=== PATIENT | male | born 2005 | race Caucasian/White ===

== ENCOUNTER 2024-06-03 08:18 | Emergency (ER) | payer BC, SELFPAY ==
[2024-06-03 08:31] VITALS: BP 136/101
[2024-06-03 08:49] LABS: % Basophils 0.7 % (0-2); % Eosinophils 1.7 % (0-6); % Immature Granulocytes 0.2 % (0-0.5); % Lymphocytes 33.2 % (20.5-51.1); % Monocytes 9.6 % (1.7-9.3); % Neutrophils 54.6 % (42.2-75.2); Absolute Eosinophils 0.1 10^3/uL (0-0.7); Absolute Monocytes 0.6 10^3/uL (0.1-0.6); Absolute Neutrophils 3.2 10^3/uL (1.4-6.5); Hematocrit 39.5 % (39.0-52.0); Hemoglobin 14.1 g/dL (13.0-18.0); Mean Corp Hgb Conc. 35.7 g/dL (33.0-37.0); Mean Corpuscular Hgb 31.7 pg (27.0-31.0); Mean Corpuscular Volume 88.8 fL (80.0-94.0); Mean Platelet Volume 9.9 fL (7.4-10.4); Nucleated Red Blood Cells % 0 % (-); Platelet Count 203 10^3/uL (130-400); Red Blood Cell Count 4.45 10^6/uL (4.70-6.10); Red Cell Dist. Width 12.1 % (11.5-14.5); White Blood Cell Count 5.9 10^3/uL (4.8-10.8)
[2024-06-03 09:00] LABS: ALT (SGPT) 16 U/L (0-50); AST (SGOT) 20 U/L (17-59); Albumin 4.7 g/dl (3.5-5.0); Alkaline Phosphatase 67 U/L (38-126); Blood Urea Nitrogen 12 mg/dl (9-20); Calcium 9.7 mg/dl (8.4-10.2); Carbon Dioxide 26 mmol/L (22-30); Chloride 104 mmol/L (98-107); Glucose 93 mg/dl (70-99); Sodium 140 mmol/L (135-145); Total Bilirubin 0.7 mg/dl (0.2-1.3); Total Protein 6.6 g/dl (6.3-8.2); eGFR > 60.00
[2024-06-03 09:15] LABS: Troponin I < 0.012 ng/ml
[2024-06-03 10:15] VITALS: BP 114/60; BMI 27.4
[2024-06-03 11:00] VITALS: BP 125/77
--- NOTE | 2024-06-03 11:10 | ED.GENMED ---
History of Present Illness
<Wendy Kolb PA-C - Last Filed: 06/04/24 08:11>
General
Chief Complaint: Chest Problem
Source: patient
Exam Limitations: none
Time Seen by Provider: 06/03/24 10:48
Nursing documentation reviewed up to this point in time: agreed with
History of Present Illness
History of Present Illness:
18 y/o M
autism, ADHD, bipolar
says about 5-7 days ago he started feeling funny, upper arms with some achiness, chest felt achy,
and then he noticed some tingling intermittently both hand fingertips
as well as lightheadendess
no heeadache, check pain, exertiional chest pain, shortness of breath, painful breathing, weakness, syncope, bacl pain
legs are normal, no numbness/fatigue/weakness
no recent illness
no med changes
called his PCP and has appt for 3 days from now
but he thought he should get checked out sooner
no trauma, vision changes
Past History
<NIMCO Langford Last Filed: 06/04/24 08:11>
Past History
ED Past Medical History: None
ED Past Surgical History: None
Patient has exhibited threatening behavior?: No
Social History
Tobacco: Non-smoker
Alcohol: None
Drug: None
Personal: Single
Living: with family
Review of Systems
<NIMCO Langford Last Filed: 06/04/24 08:11>
Review of Systems
Allergies reviewed?: Yes
All Other Systems: Not applicable
Phy Exam
<NIMCO Langford Last Filed: 06/04/24 08:11>
Physical Exam
Physical Exam:
GENERAL: Alert , in no apparent distress
EYE: pupils equal and reactive
NECK: Supple, nontender, full painless ROM
no muscle spasm
ENT: o/p clr, mmm.
CARDIAC: Regular rate and rhythm .
LUNGS: Clear breath sounds bilaterally, no acute respiratory distress, no wheezes/rales/rhonchi
ABDOMEN: Soft, without focal tenderness, no r/g, no cvat, normal bowel sounds
NEUROLOGICAL: Alert and oriented, no focal neuro deficits, CN intact, strength intact, senseation intact, 2+ symmetric brachial reflexes;
SKIN: Warm and dry, skin intact.
MUSCULOSKELETAL: No edema, well perfused. neg timo's sign, normal strength, muscle movements, nontender, no swelling, perfused
no prox weakness
normal reflexes
PSYCH: Normal and appropriate interaction.
Course
<Wendy Kolb PA-C - Last Filed: 06/04/24 08:11>
Orders/Labs/Results
Orders:
Orders
06/03/24
Electrocardiogram (*1) Stat
Comment: DONE EMR
06/03/24 08:33
ECG [Electrocardiogram (*1)] Urgent
Reason for Study: Chest Pain
EKG- Treatment ONCE
06/03/24 08:41
C-Reactive Protein Urgent
Comment: ADD ON
Comprehensive Metabolic Panel Urgent
Creatine Phosphokinase Urgent
Comment: ADD ON
Troponin I Urgent
06/03/24 08:42
Complete Blood Count/With Diff Urgent
Erythrocyte Sed Rate Urgent
Comment: ADD ON
Lyme Progressive Urgent
Comment: ADD ON
Monotest Urgent
Comment: AD ON
06/03/24 11:25
Add On- LAB Urgent
Tests Added?: esr, crp, mono, cpk, lyme
06/03/24 11:26
0.9% Sodium Chloride 1000 ml [Nss] 1,000 ml IV BOLUS
Ketorolac [Toradol] 15 mg IV NOW STA
CR Chest - 2 Views Urgent
Comment:
Reason For Exam: chest pain
06/03/24 11:35
COVID-19 Antigen Urgent
Source: Nasal Swab
Abnormal Lab Results
06/03/24
08:42
RBC 4.45 L 10^6/uL
(4.70-6.10)
MCH 31.7 H pg
(27.0-31.0)
Monocytes % 9.6 H %
(1.7-9.3)
06/03/24 08:42
06/03/24 08:41
Vital Signs
Initial and Last Documented VS:
Initial Vital Signs
Pulse Resp BP Pulse Ox
78 18 136/101 100
06/03/24 08:31 06/03/24 08:31 06/03/24 08:31 06/03/24 08:31
Last Documented Vital Signs
Temp Pulse Resp BP Pulse Ox
97.2 F 82 20 129/80 98
06/03/24 13:35 06/03/24 12:17 06/03/24 11:47 06/03/24 12:04 06/03/24 10:15
<Zaid Griffiths MD - Last Filed: 06/03/24 14:41>
Orders/Labs/Results
Orders:
Orders
06/03/24
Electrocardiogram (*1) Stat
Comment: DONE EMR
06/03/24 08:33
ECG [Electrocardiogram (*1)] Urgent
Reason for Study: Chest Pain
EKG- Treatment ONCE
06/03/24 08:41
C-Reactive Protein Urgent
Comment: ADD ON
Comprehensive Metabolic Panel Urgent
Creatine Phosphokinase Urgent
Comment: ADD ON
Troponin I Urgent
06/03/24 08:42
Complete Blood Count/With Diff Urgent
Erythrocyte Sed Rate Urgent
Comment: ADD ON
Lyme Progressive Urgent
Comment: ADD ON
Monotest Urgent
Comment: AD ON
06/03/24 11:25
Add On- LAB Urgent
Tests Added?: esr, crp, mono, cpk, lyme
06/03/24 11:26
0.9% Sodium Chloride 1000 ml [Nss] 1,000 ml IV BOLUS
Ketorolac [Toradol] 15 mg IV NOW STA
CR Chest - 2 Views Urgent
Comment:
Reason For Exam: chest pain
06/03/24 11:35
COVID-19 Antigen Urgent
Source: Nasal Swab
Abnormal Lab Results
06/03/24
08:42
RBC 4.45 L 10^6/uL
(4.70-6.10)
MCH 31.7 H pg
(27.0-31.0)
Monocytes % 9.6 H %
(1.7-9.3)
06/03/24 08:42
06/03/24 08:41
Vital Signs
Initial and Last Documented VS:
Initial Vital Signs
Pulse Resp BP Pulse Ox
78 18 136/101 100
06/03/24 08:31 06/03/24 08:31 06/03/24 08:31 06/03/24 08:31
Last Documented Vital Signs
Temp Pulse Resp BP Pulse Ox
97.2 F 82 20 129/80 98
06/03/24 13:35 06/03/24 12:17 06/03/24 11:47 06/03/24 12:04 06/03/24 10:15
<Wendy Kolb PA-C - Last Filed: 06/04/24 08:11>
MDM/Problems Addressed
Differential Diagnosis Includes:
myalgia, viral syndrome, PMR, rhabdo, lyme, cervical myelopathy, GBS,
MDM/Problems Addressed:
18 y/o M with 1 week of feeling aching in UE chest, arms, back
no weakness, no lower extremity sypmtoms
on some chronic psych meds
no injury
no fever
well appearing
normal inspection of arms/legs
no rashes
neck moving normally
symmetric and normal strength and sensation
reflexes present and symmetric
d/w ed attending
viral syndrome? lyme?
much less likely GBS or myelopathy
certainly pt is nontoxic with normal neuro exam
labs reassuring
neg esr crp mono covid
edoes have incomplete RBBB
neg trop
PERC neg
sent off lyme titer
already had echo 2021 normal
d/c home
<Wendy Kolb PA-C - Last Filed: 06/04/24 08:11>
*Critical Care Note
Total Time (30-74mins, 75-104mins- exclusive of procedures): Not Applicable
ED Attending Note
<Wendy Kolb PA-C - Last Filed: 06/04/24 08:11>
-
Portions of this chart may have been created with voice recognition software.� Occasional wrong word or��sound alike� substitutions may have occurred due to the inherent limitations of voice recognition software.
<Zaid Griffiths MD - Last Filed: 06/03/24 14:41>
ED Attending Note
Patient seen and examined by attending physician: Yes
ED Attending Note:
I have seen and evaluated the patient with a [id number] encounter. I have spoken to the advance practicer provider and involved in the medical history, the physical exam, medical decision making.
Evaluation and management service: agree unless noted differently below.
Results interpretation: agree unless noted differently below.
Focused HPI: 18-year-old male presents to the emergency room for evaluation of chest heaviness, mild dizziness, myalgias. Patient reports that for the past week or so he has noticed some heavy feeling in his chest associated with achiness
particularly in his arms. He says that he has had this chest heaviness before but not typical with body aches. He did have a prior stress test and echocardiogram which he says were normal. He says that today he noticed he was having some mild
dizziness as well and he came to the ER to be assessed. Dizziness seems to. No shortness of breath. No cough. No fevers or chills. No swelling or pain in the legs. No GI issues. No other complaints.
Physical exam: Awake alert no distress. Hypertensive in triage normalized by my assessment. Rest vitals normal. No cardiac rubs, gallops, or murmurs appreciated. Lungs clear to auscultation bilaterally. Abdomen soft, nontender to deep
palpation. Extremities warm well-perfused with good strong palpable pulses and no edema.
Medical Decision Makin-year-old male presents with chest heaviness, body aches particular in the arms and mild dizziness today. Recent labs off including a CBC and a CMP which were unremarkable. CPK normal. Inflammatory markers normal.
Troponin undetectable�constant symptoms for a week, sufficient to rule out acute TX. We sent screening for Lyme's which is pending. Chest x-ray no acute disease. EKG shows sinus rhythm. Low suspicion for emergent pathology, possibly viral
illness. Stable for discharge. Follow-up with PCP.
Discharge Plan
Departure
Patient Disposition: Home (Routine Discharge)
Date of Disposition: 06/03/24
Time of Disposition: 13:04
Patient with high blood pressure during this ER visit?: No
Covid-19: Not Applicable
Discharge Problem:
Myalgia
Instructions: Muscle and bone pain - Discharge instructions, Chest Pain PCP Follow Up
Prescriptions:
New
ibuprofen 600 mg tablet
600 mg PO Q8H PRN (Reason: Pain) Qty: 12 0RF
No Action
lithium carbonate 150 MG capsule
300 mg PO BID
quetiapine 100 MG tablet
100 mg PO DAILY
escitalopram oxalate 20 MG tablet
20 mg PO DAILY
atomoxetine [Strattera] 60 MG capsule
60 mg PO DAILY
Referrals:
Trey Milian, DO [Family Provider] - Follow up in 2-3 days
Activity Restrictions/Additional Instructions:
We are not sure the cause of your symptoms today but you had reassuring blood work and x-rays
We tested you for Lyme disease and we will call you if it is positive. It takes a couple of days to come back. In the meantime take it easy, drink fluids, take Tylenol or ibuprofen for pain. Watch for worsening symptoms like weakness in your arms
or legs, severe headache, neck pain etc. return here as needed. Otherwise see your doctor on Sunday as planned.
Interventions
Interventions:
*Risk Screen - Suicide Last Done: 06/03/24 10:15
*General Assessment Last Done: 06/03/24 10:15
*Neglect/Abuse Screening Last Done: 06/03/24 10:15
*ED COVID-19 Vaccine History Last Done: 06/03/24 10:24
*Nursing Disposition Last Done: 06/03/24 13:54
ED- Cardiac Assessment Last Done: 06/03/24 10:15
ED- Pulmonary Assessment Last Done: 06/03/24 10:24
Discharge Date and Time
Discharge Date/Time: 06/03/24 13:54
Print Language: ALBANIAN
[2024-06-03] MEDS: TORADOL 15 MG IV (11:34)
[2024-06-03] MEDS: NSS 1000 IV (11:34)
[2024-06-03 11:58] LABS: Creatine Phosphokinase 135 U/L (55-170)
[2024-06-03 12:01] LABS: C-Reactive Protein < 5.00 mg/L (0.0-10.00)
[2024-06-03 12:03] LABS: COVID-19 Antigen Negative (Negative)
[2024-06-03 12:04] VITALS: BP 129/80
[2024-06-03 12:25] LABS: Erythrocyte Sed Rate 4 mm/hour (0-20)
[2024-06-03 13:07] LABS: Monotest Negative (Negative)
[2024-06-05 15:39] LABS: Lyme Antibody Screen, EIA Negative (Negative)
== END 2024-06-03 13:54 | disposition home or self-care (01) ==
LOC: EMR 08:18
PROVIDERS: Physician Assistant; EMERGENCY PHYSICIAN Emergency Medicine; FAMILY PHYSICIAN Internal Medicine
DX: M79.18 Myalgia, other site (principal); R42 Dizziness and giddiness; R20.2 Paresthesia of skin; Z11.52 Encounter for screening for COVID-19; F84.0 Autistic disorder; F90.9 Attention-deficit hyperactivity disorder, unspecified type; F31.9 Bipolar disorder, unspecified; I45.10 Unspecified right bundle-branch block; M41.9 Scoliosis, unspecified; Z88.1 Allergy status to other antibiotic agents
CPT/HCPCS: 99284; 96374; 96361; 71046; 80053; 82550; 84484; 85025; 85652; 86140; 86308; 86618; 87811; 93005

== ENCOUNTER → 2024-06-10 17:22 | Outpatient (REF) | payer BC, SELFPAY | LOC: RAD 17:22 | PROVIDERS: ATTENDING PHYSICIAN Nurse Practitioner Family; FAMILY PHYSICIAN Internal Medicine | DX: M54.2 Cervicalgia (principal) | CPT/HCPCS: 72052 ==

== ENCOUNTER → 2024-07-24 09:49 | Outpatient (REF) | payer BC, SELFPAY | LOC: EMG 09:49 | PROVIDERS: ATTENDING PHYSICIAN Nurse Practitioner Family; FAMILY PHYSICIAN Internal Medicine | DX: R20.2 Paresthesia of skin (principal); R20.9 Unspecified disturbances of skin sensation | CPT/HCPCS: 95886; 95909 ==